=== PATIENT | male | born 1975 | race African-American/Black ===

== ENCOUNTER 2020-01-20 13:07 | Emergency (ER) | payer OTHER ==
[2020-01-20] MEDS ORDERED: Lidocaine 1% w/Epinephrine 1:100K 20 ML VIAL ONE (14:03)
[2020-01-20] MEDS ORDERED: Boostrix 0.5 ML (Tdap) VIAL ONE (14:40)
== END 2020-01-20 15:51 | disposition home or self-care (01) ==
LOC: ERS 13:07
DX: S01.112A Laceration without foreign body of left eyelid and periocular area, initial encounter (principal); S60.512A Abrasion of left hand, initial encounter; S60.511A Abrasion of right hand, initial encounter; S80.812A Abrasion, left lower leg, initial encounter; S80.811A Abrasion, right lower leg, initial encounter; F32.9 Major depressive disorder, single episode, unspecified; I10 Essential (primary) hypertension; Z23 Encounter for immunization; V63.5XXA Driver of heavy transport vehicle injured in collision with car, pick-up truck or van in traffic accident, initial encounter; Y92.411 Interstate highway as the place of occurrence of the external cause
CPT/HCPCS: 90471; 90715